=== PATIENT | male | born 1975 | race Hispanic/Latino ===

== ENCOUNTER 2020-11-21 22:42 | Emergency (ER) | payer OTHER ==
[~2020-11-21] VITALS: Ht 165.1 cm; Wt 84.8 kg
[2020-11-22 07:45] LABS: BASOPHILS % (AUTO) 0.4 % (0.0-5.0); EOSINOPHILS % (AUTO) 1.2 % (0.0-8.0); HEMATOCRIT 42.6 % (42-54); LYMPHOCYTES % (AUTO) 29.8 % (21.0-51.0); MEAN CORPUSCULAR HEMOGLOBIN 28.5 pg (27.0-33.0); MEAN CORPUSCULAR HGB CONC 34.3 g/dL (32.0-36.0); MEAN CORPUSCULAR VOLUME 83.2 fL (79-99); MONOCYTES % (AUTO) 7.1 % (3.0-13.0); NEUTROPHILS % (AUTO) 61.3 % (40.0-77.0); PLATELET COUNT (AUTO) 283 K/uL (130-400); RED BLOOD CELL COUNT(AUTO) 5.12 MIL/uL (4.50-6.20); RED CELL DISTRIBUTION WIDTH 13.3 % (11.0-15.5); WHITE BLOOD COUNT (AUTO) 8.3 K/uL (4.8-10.8)
[2020-11-22 08:01] LABS: ALBUMIN 4.2 g/dL (3.5-5.0); BILIRUBIN,TOTAL 0.4 mg/dL (0.2-1.0); CREATININE 0.9 mg/dL (0.5-1.5); POTASSIUM 3.8 mmol/L (3.5-5.1); URIC ACID 5.2 mg/dL (2.6-7.2)
[2020-11-22 09:36] VITALS: BP 125/74
[2020-11-22] MEDS ORDERED: NAPR-1180 PO (09:43)
== END 2020-11-22 09:59 | disposition home or self-care (01) ==
LOC: EDH 22:42
DX: M77.8 Other enthesopathies, not elsewhere classified (principal); I10 Essential (primary) hypertension
CPT/HCPCS: 36415; 73070; 80053; 84550; 85025

== ENCOUNTER 2022-08-19 06:55 | Emergency (ER) | payer OTHER ==
[~2022-08-19] VITALS: Ht 175.3 cm; Wt 86.2 kg
[~2022-08-19 06:55] MED LIST: NAPR-1180 PO
[2022-08-19 07:28] LABS: BASOPHILS % (AUTO) 0.4 % (0.0-5.0); EOSINOPHILS % (AUTO) 1.3 % (0.0-8.0); HEMATOCRIT 43.6 % (42-54); LYMPHOCYTES % (AUTO) 40.9 % (21.0-51.0); MEAN CORPUSCULAR HEMOGLOBIN 28.5 pg (27.0-33.0); MEAN CORPUSCULAR HGB CONC 34.2 g/dL (32.0-36.0); MEAN CORPUSCULAR VOLUME 83.5 fL (79-99); MONOCYTES % (AUTO) 8.1 % (3.0-13.0); NEUTROPHILS % (AUTO) 48.8 % (40.0-77.0); PLATELET COUNT (AUTO) 275 K/uL (130-400); RED BLOOD CELL COUNT(AUTO) 5.22 MIL/uL (4.50-6.20); RED CELL DISTRIBUTION WIDTH 13.3 % (11.0-15.5); WHITE BLOOD COUNT (AUTO) 9.9 K/uL (4.8-10.8)
[2022-08-19] MEDS ORDERED: 0.9%NACL 1000ML 1,000 ML IV ONE (07:30)
[2022-08-19] MEDS ORDERED: ONDANSETRON 4MG INJ IVP ONE (07:30)
[2022-08-19 07:45] LABS: ALBUMIN 4.1 g/dL (3.5-5.0); CREATININE 0.9 mg/dL (0.5-1.5); POTASSIUM 3.5 mmol/L (3.5-5.1); TOTAL PROTEIN, SERUM 7.4 g/dL (6.0-8.3)
[2022-08-19 08:22] LABS: APPEARANCE,URINE CLEAR (CLEAR); BILIRUBIN,URINE NEGATIVE (NEGATIVE); COLOR,URINE LIGHT-YELLOW (YELLOW); GLUCOSE, URINE (UA) >=1000 mg/dL (NEGATIVE); KETONES,URINE NEGATIVE (NEGATIVE); LEUKOCYTE ESTERASE ,URINE NEGATIVE Leu/uL (NEGATIVE); NITRATE,URINE NEGATIVE (NEGATIVE); OCCULT BLOOD,URINE MODERATE (NEGATIVE); PH,URINE 6.5 (5.0-8.0); PROTEIN,URINE NEGATIVE (NEGATIVE); UROBILINOGEN,URINE 0.2 mg/dL (0.2-1.0)
[2022-08-19 08:29] LABS: MUCUS,URINE RARE LPF (None Seen); WBC,URINE 0-1 /HPF (0-1)
[2022-08-19 09:05] VITALS: BP 117/76
[2022-08-19] MEDS ORDERED: MECL-262 PO (09:16)
[2022-08-19] MEDS ORDERED: ONDA4TAB10 PO (09:19)
== END 2022-08-19 09:46 | disposition home or self-care (01) ==
LOC: EDH 06:55
DX: H81.10 Benign paroxysmal vertigo, unspecified ear (principal); R11.0 Nausea; I10 Essential (primary) hypertension
CPT/HCPCS: 99285; 96374; 70450; 96361; 87635; 84484; 80053; 85025; 87804 ×2; 81001; 36415; 93005; C9803; J7030; J2405

== ENCOUNTER 2024-08-10 23:44 | Emergency (ER) | payer SELFPAY ==
[~2024-08-10] VITALS: Ht 165.1 cm; Wt 83.9 kg
[~2024-08-10 23:44] MED LIST changes: +MECL-262 PO; +ONDA-243 PO
--- NOTE | 2024-08-10 23:49 | NUR ---
UA CUP PROVIDED
[2024-08-11 00:24] LABS: APPEARANCE,URINE CLEAR (CLEAR); BILIRUBIN,URINE NEGATIVE (NEGATIVE); COLOR,URINE COLORLESS (YELLOW); GLUCOSE, URINE (UA) >=1000 mg/dL (NEGATIVE); KETONES,URINE 5 mg/dL (NEGATIVE); LEUKOCYTE ESTERASE ,URINE NEGATIVE Leu/uL (NEGATIVE); NITRATE,URINE NEGATIVE (NEGATIVE); OCCULT BLOOD,URINE MODERATE (NEGATIVE); PROTEIN,URINE NEGATIVE (NEGATIVE); UROBILINOGEN,URINE 0.2 mg/dL (0.2-1.0)
[2024-08-11 00:27] LABS: ADD UA MICROSCOPIC YES
[2024-08-11 00:28] LABS: BACTERIA,URINE RARE /HPF (None Seen)
--- NOTE | 2024-08-11 01:01 | HMCIMG ---
CT ABD/PEL WO CON RENAL/APPY HISTORY: Right flank pain COMPARISON: None TECHNIQUE: Multiple sequential axial images of the abdomen and pelvis were obtained from the dome of the diaphragm through symphysis pubis. Patient was not given contrast through intravenous route. Oral contrast was not given. FINDINGS: No pleural effusion is seen bilaterally. There is no evidence of parenchymal disease or pulmonary nodule of the visualized lower lungs. Degenerative changes of the thoracolumbar spine are present. The heart is not enlarged. Liver is enlarged measuring 17 cm. The liver, spleen, adrenal glands and pancreas are unremarkable. There is right renal pelvis prominence. There is no evidence of hydronephrosis bilaterally. No evidence of renal stone is seen. Fecal material is seen in the colon. There are normal size retroperitoneal and mesenteric lymph nodes. No ascites is seen. No CT evidence of acute appendicitis is seen. Pelvic sidewalls are symmetric bilaterally. Bladder is well distended without wall thickening. IMPRESSION: 1. Right renal pelvis prominence without definite CT evidence of renal stone. Differential diagnosis would include recently passed stone versus nonradiopaque stone versus pyelonephritis. Urinalysis correlation with the helpful. CT was performed with one or more following dose reduction techniques: automated exposure control, adjustment of the mA and kv according to patient's size, or use of a iterative reconstruction technique.
[2024-08-11] MEDS: ketOROlac 30MG VIAL (30MG/ML) IM ONE (01:07)
[2024-08-11] MEDS: cefTRIAXone 1G VIAL IM ONE (01:07)
[2024-08-11] MEDS: 0.9% NACL 500ML IV.SOLN 500 ML IV ONE (01:08)
[2024-08-11] MEDS ORDERED: KETO10 PO (02:14)
[2024-08-11] MEDS ORDERED: CIPR-278 PO (02:14)
--- NOTE | 2024-08-11 02:18 | ERN ---
ED Note History of Present Illness Stated Complaint: NAUSEA Chief Complaint: Multiple Complaints Time Seen by MD: 00:29 Dictation: This is a 49-year-old male who presented to the emergency room with multiple complaints including right flank pain with severe burning micturition. He also reports pain in his lower back nausea. The symptoms started on 08/09/2024. He has been trying to take [id number] medication without any improvement. Temperature 99.5 pulse 94 respirations 20 blood pressure 138/84 with a pulse oximetry of 95% on room air. Allergies: Coded Allergies: No Known Drug Allergies (Unverified Allergy, Unknown, 11/21/20) Home Meds Active Scripts Ketorolac Tromethamine (Toradol) 10 Mg Tab, 10 MG PO QID for pain for 5 Days, #20 TAB 0 Refills Prov:JOCELYN MOISE MD 08/11/24 Ciprofloxacin HCl (Cipro) 500 Mg Tablet, 1 TAB PO BID for 7 Days, #14 TAB 0 Refills Prov:JOCELYN MOISE MD 08/11/24 Reported Medications Atorvastatin Calcium (Atorvastatin Calcium) 40 Mg Tablet, 1 TAB PO DAILY for 30 Days, #30 TAB 0 Refills 08/12/24 Lisinopril (Lisinopril) 20 Mg Tablet, 1 TAB PO DAILY for 30 Days, #30 TAB 0 Refills 08/12/24 Discontinued Scripts Ondansetron (Ondansetron Odt) 4 Mg Tab.rapdis, 4 MG PO TID PRN for NAUSEA/VOMITING, #10 TAB Prov:DARÍO MENDOZA MD 08/19/22 Meclizine HCl (Antivert) 25 Mg Tab.chew, 25 MG PO TID PRN for DIZZINESS for 7 Days, #20 TAB.CHEW Prov:DARÍO MENDOZA MD 08/19/22 Naproxen (Naprosyn) 500 Mg Tablet, 500 MG PO BIDMEALS PRN for Pain, #20 TAB Prov:ENMA KUMAR MD 11/22/20 Past Medical History Past Medical History: High Cholesterol, Hypertension Surgical History: None Surgical History Other: None Family History: Negative Social History: Lives with family RN Note Reviewed/Agreed w/PFSH: Yes Review of System Dictation Constitutional: Negative for fever,chills, and weight loss Eyes: Negative for injury, pain,redness, and discharge ENT: Negative for injury,pain or swelling Cardiovascular: Negative for chest pain, palpitations, and edema Respiratory: Negative for shortness of breath, cough, and wheezing, Abdomen/GI: Negative for abdominal pain, nausea, vomiting, diarrhea, and constipation Back: Negative for injury and pain : Negative for injury, bleeding and discharge positive for right flank pain MS/Extremity: Negative for injury and deformity Skin: Negative for rash, and discoloration Neuro: Negative for headache, weakness, numbness, tingling, and seizure Psych: Negative for suicide ideation, homicidal ideation, and hallucinations Initial Vital Sign VS Vital Signs Date Time Temp Pulse Resp B/P (MAP) Pulse Ox O2 Delivery O2 Flow Rate FiO2 08/10/24 23:46 99.5 94 20 138/84 100 Room Air 08/11/24 00:44 0 21 Physical Exam Dictation General: awake, alert, NAD Head/Face: Normocephalic, atraumatic Eyes: PERRL, EOMI, vision at baseline ENT: oral cavity clear, TMs clear, no signs of infection Neck: Trachea midline, supple, no nuchal rigidity Cardiovascular: RRR, normal S1/S2, No MRGs, no JVD Respiratory: CTAB, no respiratory distress, No rales or wheezes Abdomen: Soft, non-tender, non-distended, normal bowel sounds, no guarding or rebound. Skin: Warm, dry, normal turgor, no rash MS/Extremity: Pulses equal, no cyanosis, neurovascular intact, FROM Neuro: COAx4, GCS 15, strength 5/5, CN 2-12 intact, normal cerebellar exam, normal gait, Psych: Normal behavior, mood, and affect normal Extremities-trace edema without any palpable cords, Homans sign is negative Results (Laboratory/Radiology) Laboratory/Radiology Laboratory Tests Test 08/10/24 23:49 Urine Color COLORLESS (YELLOW) Urine Appearance CLEAR (CLEAR) Urine pH 6.0 (5.0-8.0) Urine Specific [place] 1.025 (1.001-1.031) Urine Protein NEGATIVE mg/dL (NEGATIVE) Urine Glucose (UA) >=1000 mg/dL (NEGATIVE) H Urine Ketones 5 mg/dL (NEGATIVE) H Urine Occult Blood MODERATE (NEGATIVE) H Urine Nitrate NEGATIVE (NEGATIVE) Urine Bilirubin NEGATIVE mg/dL (NEGATIVE) Urine Urobilinogen 0.2 mg/dL (0.2-1.0) Urine Leukocyte Esterase NEGATIVE Missael/uL Urine RBC 11-25 /HPF (0-1) H Urine WBC 11-25 /HPF (0-1) H Urine Bacteria RARE /HPF (None Seen) Labs Reviewed?: Yes ED Course ED Course Orders Procedure Category Date Status Time Vital Signs Per CPOE 08/10/24 Transmitted Routine 23:49 Urinalysis Profile LAB 08/10/24 Complete 23:49 Culture Urine FRANKO 08/11/24 Complete 00:29 Ketorolac PHA 08/11/24 Complete Tromethamine 30mg/Ml 01:00 Ceftriaxone 1g Vial PHA 08/11/24 Complete (Rocephine 1g Inj) 01:00 Ct Abd/Pel Wo Con CT 08/11/24 Resulted Renal/Appy 00:36 0.9% Nacl 500ml PHA 08/11/24 Complete Iv.Soln (Ns 500ml 01:00 Morphine 4mg Syg PHA 08/11/24 Complete (Morphine 4mg Syg) 02:30 Current Medications Medications (Trade) Dose Ordered Sig/Bisi Route PRN Reason Start Time Stop Time Status Last Admin Dose Admin Ceftriaxone Sodium (ROCEphine 1G INJ) 1 gm ONCE ONCE IM 08/11/24 01:00 08/11/24 01:01 DC 08/11/24 01:07 Ketorolac Tromethamine (toRADol) 30 mg ONCE ONCE IM 08/11/24 01:00 08/11/24 01:01 DC 08/11/24 01:07 Morphine Sulfate (morPHINE 4MG SYG) 4 mg ONCE ONCE IVP 08/11/24 02:30 08/11/24 02:31 DC 08/11/24 02:28 Sodium Chloride 500 ml @ 0 mls/hr ONCE ONCE IV 08/11/24 01:00 08/11/24 01:01 DC 08/11/24 01:08 Vital Signs Date Time Temp Pulse Resp B/P (MAP) Pulse Ox O2 Delivery O2 Flow Rate FiO2 08/11/24 02:37 98.8 99 19 118/71 96 Room Air* 0 21 08/11/24 00:44 98 19 121/72 98 Room Air* 0 21 08/10/24 23:46 99.5 94 20 138/84 100 Room Air We will perform diagnostic labs, advanced imaging and administer medications according to the patient's complaint. Once the results are available, will review and personally interpreted the labs to rule out any acute life- threatening emergency the trach require immediate intervention and treatment. I will then re-evaluate the patient after treatment and diagnostic exams have return to determine whether the patient requires any further testing, can safely be discharged home or need further admission to hospital for additional treatment and evaluation. Labs reviewed urinalysis showed 11-25 WBCs and RBCs were increased as well as occult blood was seen. CT scan of the abdomen and pelvis renal stone protocol showed mild prominence of the right renal pelvis without any obvious visible stone. The possibility of either patient passing the stone or a radiopaque stone was raised by the radiologist. No evidence of any obvious other abnormalities. Urinalysis was abnormal. Hydration pain medication and empiric antibiotic was given and he will be discharged to home with antibiotics Medical Decision Making MDM MDM: Differential diagnosis: Renal colic, pyelonephritis, hydronephrosis, lumbar radiculopathy, paraspinal muscle spasms Rationale: Tests considered and ordered secondary to shared decision making include: Previous outside records reviewed: Old ER visits. Risk of complication and/or morbidity or mortality of patient management: None Medications-Per medication reconciliation Need for hospitalization: Patient does not meet criteria for hospitalization. Need for emergency major/minor surgery: No There are no social concerns with this patient. Prescription drug management Prescriptions will include symptomatic care Patient's prior external medical records from other ER visits were reviewed by me as indicated. Prior testing and results from previous visits were reviewed. Prior tests were taken into account with medical decision making and resource utilization, independent historian/historians were used to obtain complete medical history. I independently interpreted the test that were performed, results were reviewed by me and considered findings on radiology if ordered. Medical management and examination interpretation discussions were had by me with other qualified healthcare professionals as indicated for the patient's care. Problem List Problem List: (1) Sepsis (2) Leukocytosis (3) Complicated UTI (urinary tract infection) (4) Hyponatremia (5) Hypochloremia (6) Hypokalemia (7) History of nephrolithiasis (8) Renal colic on right side DX & DISP Disposition: Discharge Departure Impression: Primary Impression: Renal colic on right side Additional Impressions: UTI (urinary tract infection), Hematuria, History of nephrolithiasis Condition: Stable Scripts Ketorolac Tromethamine (Toradol) 10 Mg Tab 10 MG PO QID for pain for 5 Days, #20 TAB 0 Refills Prov: JOCELYN MOISE MD 08/11/24 Ciprofloxacin HCl (Cipro) 500 Mg Tablet 1 TAB PO BID for 7 Days, #14 TAB 0 Refills Prov: JOCELYN MOISE MD 08/11/24 Additional Instructions: Patient and the caregiver have been informed of all the diagnostic tests and the imaging conducted during the today's visit to the emergency room and has verbalized understanding of the results I have personally reviewed and interpreted all diagnostic exams performed here in the ER today as well as the vital signs documented by the nursing staff. The patient is now being discharged to home and should follow up with the primary care physician or the specialist as directed by the ER staff. Follow-up with primary care provider in 1 to 2 days. Take medications as directed here in the emergency room. Okay to continue home medications unless otherwise discussed during your visit in the emergency room today. Return to your nearest emergency room if symptoms worsen or if there is no improvement. Call 911 if you need immediate assistance. Take Tylenol or Motrin [id number] as needed and if no contraindications are present. Increase oral hydration. A wound culture or urine culture was ordered here in the emergency room department please follow-up with primary care provider and advise them to get repeat ports from our facility. If you had any Vincent wrap/splints that were applied here, please do not remove them until you see your primary care or specialty. Referrals: PABLO AHUJA MD (PCP) JOCELYN MOISE MD August 11, 2024 02:18
[2024-08-11] MEDS: morPHINE 4 MG SYG IVP ONE (02:28)
[2024-08-11 02:37] VITALS: BP 118/71; PULSE 99; RESP 19; TEMP 98.8; O2SAT 96
--- NOTE | 2024-08-11 11:05 | NUR ---
PT ASKED IF WE COULD CALL IN SCRIPT TO JOLE[facility] JORGE D/T HIS CLINIC NOT OPENED UNTIL TOMORROW. DR ESTELA MACKAY'D
[2024-08-12] MEDS ORDERED: LISI20TA24 PO (23:58)
[2024-08-12] MEDS ORDERED: ATOR40TA71 PO (23:58)
== END 2024-08-11 02:45 | disposition home or self-care (01) ==
LOC: EDH 23:44
DX: N23 Unspecified renal colic (principal); N39.0 Urinary tract infection, site not specified; R31.9 Hematuria, unspecified; E78.00 Pure hypercholesterolemia, unspecified; I10 Essential (primary) hypertension; Z79.899 Other long term (current) drug therapy
CPT/HCPCS: 99285; 87086 ×2; 87186; 81001; 74176; 96374; 96372 ×2; J1885; J7040; J0696; J2270; 99284